=== PATIENT | female | born 1970 | race Caucasian/White ===

== ENCOUNTER 2018-07-15 17:19 | Emergency (ER) | payer OTHER ==
--- NOTE | 2018-07-15 18:01 | RAD ---
LUMBAR SPINE THREE VIEWS: INDICATIONS: History of lumbar spinal instrumentation with low back pain. COMPARISON: None. FINDINGS: There are five lumbar type vertebrae. There are posterolateral interconnecting rods with associated pedicle screws spanning L4 through S1. There are intervertebral cages seen at L4-L5 and at L5-S1. T here is morselized bone graft within the posterolateral aspect of the spinal instrumentation. Spinal alignment is preserved. Vertebral body heights appear within normal limits. The instrumentation pr ojects in the expected position. IMPRESSION: Postoperative lumbar spine. POS: PADMA
[2018-07-15] MEDS ORDERED: Diazepam 5 MG TAB ONE (18:22)
[2018-07-15] MEDS ORDERED: HYDROcodone/Acetaminophen 10/325 mg Tablet ONE (18:22)
[2018-07-15] MEDS ORDERED: Ketorolac Tromethamine 60 MG/2 ML VIAL ONE (18:38)
== END 2018-07-15 18:39 | disposition home or self-care (01) ==
LOC: ERS 17:19
DX: G89.29 Other chronic pain (principal); M54.9 Dorsalgia, unspecified; F17.210 Nicotine dependence, cigarettes, uncomplicated; Z79.899 Other long term (current) drug therapy; W01.0XXA Fall on same level from slipping, tripping and stumbling without subsequent striking against object, initial encounter
CPT/HCPCS: 72100; 96372; J1885